=== PATIENT | female | born 1990 | race Two or more races ===

== ENCOUNTER 2021-01-21 17:12 | Outpatient (CLI) | payer OTHER, SELFPAY | END 2021-01-21 17:13 | disposition home or self-care (01) | LOC: ANHCOVIDVC 17:12 | PROVIDERS: PCP Family Medicine | DX: Z23 Encounter for immunization (principal) | CPT/HCPCS: 0001A; 91300 ==

== ENCOUNTER 2021-02-11 17:06 | Outpatient (CLI) | payer OTHER, SELFPAY | END 2021-02-11 17:07 | disposition home or self-care (01) | LOC: ANHCOVIDVC 17:06 | PROVIDERS: PCP Family Medicine | DX: Z23 Encounter for immunization (principal) | CPT/HCPCS: 0002A; 91300 ==

== ENCOUNTER 2023-07-31 14:13 | Emergency (ER) | payer OTHER, SELFPAY ==
[2023-07-31 14:46] VITALS: BP 135/88; PULSE 92; RESP 17; TEMP 36.7; O2SAT 100
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
== END 2023-07-31 17:16 | disposition home or self-care (01) ==
PROVIDERS: Emergency Provider General Practice; PCP Family Medicine
DX: Z04.1 Encounter for examination and observation following transport accident (principal)
CPT/HCPCS: 99282

== ENCOUNTER 2023-10-10 08:04 | Outpatient (CLI) | payer OTHER, SELFPAY ==
--- NOTE | ~2023-10-10 | XR_ITS ---
XR ankle LT min 3V, XR tibia fibula LT 2V 10/10/2023 08:41 Indication: Left lateral ankle pain for one month. Procedure: 4 views left ankle and 2 views left tibia/fibula Comparison: No prior studies for comparison. Findings: There is a nondisplaced transverse fracture of the distal fibular metadiaphysis. No other f racture or traumatic malalignment. Normal mineralization. No foreign bodies. Impression: 1: Nondisplaced transverse fracture distal fibular metadiaphysis. Reviewed, dictated and finalized at location D. [facility]ER Impression: 1: Nondisplaced transverse fracture distal fibular metadiaphysis. Impression: 1: Nondisplaced transverse fracture distal fibular metadiaphysis.
== END 2023-10-10 08:05 ==
PROVIDERS: PCP Family Medicine; Visit Provider Nurse Practitioner Family
DX: S82.425A Nondisplaced transverse fracture of shaft of left fibula, initial encounter for closed fracture (principal)
CPT/HCPCS: 73590; 73610